=== PATIENT | male | born 1955 | race Two or more races ===

== ENCOUNTER 2022-03-09 13:57 | Outpatient (RCR) | payer MEDICARE, MEDICAID, SELFPAY | END 2022-04-07 08:51 | disposition home or self-care (01) | LOC: HO.WCC 13:57 | PROVIDERS: Visit Provider Surgery | DX: S91.301D Unspecified open wound, right foot, subsequent encounter (principal); L30.3 Infective dermatitis; B35.3 Tinea pedis; I10 Essential (primary) hypertension; F17.210 Nicotine dependence, cigarettes, uncomplicated | CPT/HCPCS: 99212; 99214 ==